=== PATIENT | female | born 1965 | race Caucasian/White ===

== ENCOUNTER 2018-03-09 07:28 | Day surgery (SDC) | payer MEDICARE, MEDICAID ==
[2018-03-08 14:42] VITALS: BMI 21.5
[2018-03-09] MEDS ORDERED: Bupivacaine HCl 0.25%/Epi 0.0005/PF 10 ML VIAL FS ONE ×2 (07:44)
[2018-03-09] MEDS ORDERED: Ketamine 50 MG/ML VIAL ONE (07:47)
[2018-03-09] MEDS ORDERED: Fentanyl 100 MCG/2 ML VIAL ONE ×2 (07:47→08:55)
[2018-03-09] MEDS ORDERED: CEFAZOLIN/Water 2 GM/20 ML SYRINGE ONE (07:55)
[2018-03-09] MEDS ORDERED: Ketorolac Tromethamine 30 MG/ML VIAL ONE (07:55)
[2018-03-09] MEDS ORDERED: Midazolam HCl 2 mg/2 ml Vial ONE (07:56)
[2018-03-09 08:07] LABS: #Basophils 0.1 thou/uL (0.0-0.2); #Eosinphils 0.1 thou/uL (0.0-0.7); #Lymphocytes 2.6 thou/uL (1.20-3.40); #Monocytes 0.5 thou/uL (0.11-0.59); #Neutrophils 3.1 thou/uL (1.40-6.50); %Basophils 0.8 % (0.0-1.0); %Eosinophils 1.1 % (0.0-10.0); %Lymphocytes 41.6 % (21.0-51.0); %Monocytes 7.4 % (0.0-10.0); Hemoglobin 13.2 g/dL (12.0-16.0); Mean Corpuscular HGB CONC 33.5 g/dL (32.0-36.0); Mean Corpuscular Hemoglobin 30.7 pg (27.0-31.0); Mean Corpuscular Volume 91.5 fL (78.0-98.0); Mean Platelet Volume 6.6 fL (7.4-10.4); Platelet Count 266 thou/uL (130-400); RBC Distribution Width 12.7 % (11.5-14.5); Red Blood Cell (RBC) Count 4.31 mill/uL (4.20-5.40); White Blood Cell (WBC) Count 6.3 thou/uL (4.8-10.8)
[2018-03-09 08:28] LABS: ALT (SGPT) 12 U/L (8-55); AST (SGOT) 19 U/L (5-34); Albumin 4.1 g/dL (3.5-5.0); Alkaline Phosphatase 58 U/L (40-150); Anion Gap 12 mmol/L (10-20); BUN (Urea Nitrogen) 19 mg/dL (9.8-20.1); Bilirubin, Total 0.3 mg/dL (0.2-1.2); Calc. Creatinine Clearance 67 mL/min (70-130); Calcium 10.2 mg/dL (7.8-10.44); Carbon Dioxide 27 mmol/L (22-29); Chloride 104 mmol/L (98-107); Estimated GFR-MDRD 74; Globulin 4.2 g/dL (2.4-3.5); Glucose 61 mg/dL (70-105); Potassium 3.9 mmol/L (3.5-5.1); Protein, Total 8.3 g/dL (6.0-8.3); Sodium 139 mmol/L (136-145)
[2018-03-09] MEDS ORDERED: Esmolol 100 MG/10 ML VIAL ONE (12:40)
[2018-03-09] MEDS ORDERED: Lidocaine 1% PF 5 ML VIAL ONE (12:40)
[2018-03-09] MEDS ORDERED: PROPOFOL 200 MG/20 ML VIAL ONE (12:40)
[2018-03-09] MEDS ORDERED: Ondansetron HCl/PF 4 MG/2 ML Vial ONE (12:40)
[2018-03-09] MEDS ORDERED: Dexamethasone 20 MG/5 ML VIAL ONE (12:40)
[2018-03-09] MEDS ORDERED: Glycopyrrolate 0.2 MG/ML 5 ML SYRINGE ONE (12:40)
--- NOTE | 2018-03-10 14:03 | OP ---
DATE OF PROCEDURE: 03/09/2018 PREOPERATIVE DIAGNOSIS: Cholelithiasis. POSTOPERATIVE DIAGNOSIS: Symptomatic cholelithiasis. PROCEDURE: Laparoscopic cholecystectomy. SURGEON: Slade Marroquin M.D. ANESTHESIA: General endotracheal. INDICATIONS: Patient is a 52-year-old profoundly retarded female. During recent imaging, she was fo und to have cholelithiasis and was referred for possible cholecystectomy. As she is profoundly retar ded, I recommended proceeding with this secondary to her inability to communicate her symptoms. PROCEDURE IN DETAIL: Informed consent was obtained. The patient was taken to the operating room whe re general endotracheal anesthesia was obtained with the patient in the supine position. The abdomen was prepped with Betadine and draped in the usual sterile fashion. Quarter percent Marcaine with ep inephrine was infiltrated below the umbilicus and a 10 mm infraumbilical incision was created. A Susana ess needle was passed through this incision into the peritoneal cavity. A pneumoperitoneum was estab lished using carbon dioxide up to a pressure of 15 mmHg. Local anesthetic was infiltrated and three additional 5 mm right upper quadrant incisions were created. Through the mid incision, a 5 mm port w as passed into the peritoneal cavity. The camera was passed through this port and under direct visio n, an 11 port is passed through the infraumbilical incision. The camera was replaced through this po rt, and under direct vision, two additional 5 mm ports were passed through the incisions already crea phillip. The gallbladder was grasped and retracted in a cephalad direction. Minimal adhesions were bluntly st ripped away from the apex of the gallbladder, and the apex was retracted laterally and inferiorly. C areful dissection was carried out to the apex of the gallbladder to identify the cystic duct and cyst ic artery. These were each carefully dissected circumferentially. The duct was of normal caliber. Both the duct and the artery were divided between clips leaving two on the side to remain within the abdomen. The gallbladder was then dissected out of the gallbladder fossa using electrocautery and re moved through the infraumbilical port site. The fascia was closed with 0 Vicryl suture and a GraNee needle. The right upper quadrant was inspected and irrigated. All irrigant was aspirated. All port s and instruments were removed under direct vision. Pneumoperitoneum was carefully evacuated. Addit ional local anesthetic was infiltrated into each port site. The skin edges were approximated with 4- 0 Monocryl subcuticular sutures, and Dermabond was placed externally. There were no complications. The patient tolerated the procedure well and was taken to the Recovery Room in stable condition. FINDINGS: The right upper quadrant incisions were placed a little further lateral than usual to elan d operating too close to her gastrostomy tube. There were significant changes associated with the ga llbladder including gallbladder wall thickening and sclerotic changes consistent with chronic cholecy stitis. There were also significant adhesions to the gallbladder, also consistent with cholecystitis . There were numerous firm stones within the gallbladder as well as substantial wall thickening. Th ere were no complications. Patient tolerated the procedure well and was taken to recovery room in st able condition.
== END 2018-03-09 10:50 | disposition short-term general hospital (02) ==
LOC: SDC 07:28
PROVIDERS: ATTEND Specialist
PROC: 0FT44ZZ Resection of Gallbladder, Percutaneous Endoscopic Approach (ICD-10-PCS; principal; 2018-03-09)
DX: K80.10 Calculus of gallbladder with chronic cholecystitis without obstruction (principal); E03.9 Hypothyroidism, unspecified; Z79.899 Other long term (current) drug therapy
CPT/HCPCS: 36415; 80053; 85025; 88304; J0131; J1100; J1885; J2001; J2250; J2405; J2704; J3010

== ENCOUNTER 2021-09-06 09:58 | Outpatient (CLI) | payer MEDICARE, MEDICAID ==
[2021-09-06 20:43] LABS: SARS-CoV-2 PCR by NAA Not Detected (NotDetected)
== END 2021-09-06 09:59 | disposition home or self-care (01) ==
LOC: LABBT 09:58
PROVIDERS: ATTEND Internal Medicine Gastroenterology
DX: Z01.812 Encounter for preprocedural laboratory examination (principal); Z20.822 Contact with and (suspected) exposure to COVID-19
CPT/HCPCS: U0003; U0005

== ENCOUNTER 2021-09-11 06:17 | Day surgery (SDC) | payer MEDICARE, MEDICAID ==
[2021-09-06 10:51] VITALS: BMI 20.9
[2021-09-11] MEDS ORDERED: Lidocaine 1% PF 5 ML VIAL ONE (08:30)
[2021-09-11] MEDS ORDERED: PROPOFOL 200 MG/20 ML VIAL ONE (08:30)
== END 2021-09-11 09:45 | disposition home or self-care (01) ==
LOC: SDC 06:17
PROVIDERS: ATTEND Internal Medicine Gastroenterology
PROC: 0DJ08ZZ Inspection of Upper Intestinal Tract, Via Natural or Artificial Opening Endoscopic (ICD-10-PCS; principal; 2021-09-11)
PROC: 0DBK8ZX Excision of Ascending Colon, Via Natural or Artificial Opening Endoscopic, Diagnostic (ICD-10-PCS; 2021-09-11)
DX: Z12.11 Encounter for screening for malignant neoplasm of colon (principal); K63.5 Polyp of colon; K64.8 Other hemorrhoids; K31.89 Other diseases of stomach and duodenum; N28.9 Disorder of kidney and ureter, unspecified; G40.909 Epilepsy, unspecified, not intractable, without status epilepticus; Z79.899 Other long term (current) drug therapy; Z93.1 Gastrostomy status
CPT/HCPCS: 88305

== ENCOUNTER 2022-03-24 10:53 | Day surgery (SDC) | payer MEDICARE, MEDICAID ==
[2022-03-20 13:12] VITALS: BMI 20.3
[2022-03-24] MEDS ORDERED: SUGAMMADEX SODIUM 200 MG/2 ML VIAL ONE (13:26)
[2022-03-24] MEDS ORDERED: Ondansetron PF 4 MG/2 ML Vial ONE (14:00)
[2022-03-24] MEDS ORDERED: Lidocaine 1% PF 5 ML VIAL ONE (14:00)
[2022-03-24] MEDS ORDERED: Phenylephrine 10 MG/ML VIAL ONE (14:00)
[2022-03-24] MEDS ORDERED: Dexamethasone 20 MG/5 ML VIAL ONE (14:00)
[2022-03-24] MEDS ORDERED: PROPOFOL 200 MG/20 ML VIAL ONE (14:00)
[2022-03-24] MEDS ORDERED: Magnevist 469MG/ML 20 ML VIAL ONE (14:12)
== END 2022-03-24 16:46 | disposition home or self-care (01) ==
LOC: MRI 10:53
PROVIDERS: ATTEND Family Medicine
DX: K31.9 Disease of stomach and duodenum, unspecified (principal); Q85.1 Tuberous sclerosis; N28.1 Cyst of kidney, acquired; Z79.890 Hormone replacement therapy; Z79.899 Other long term (current) drug therapy
CPT/HCPCS: 74183; A9579; J1100; J2370; J2405; J2704